=== PATIENT | female | born 1955 | race Caucasian/White ===

== ENCOUNTER 2017-04-30 09:30 | Outpatient (CLI) | payer BC, MEDICARE ==
--- NOTE | 2017-04-30 21:37 | ULT ---
LEFT LOWER EXTREMITY VENOUS ULTRASOUND 04/30/17 Ultrasonography of the left lower extremity was performed using color doppler mode. All deep veins we re freely compressible from groin to ankle. No echogenic clot was seen. There was normal doppler resp onse to augmentation maneuvers. IMPRESSION: No evidence of DVT. POS: HOME
== END 2017-04-30 09:31 | disposition home or self-care (01) ==
LOC: BURULT 09:30
PROVIDERS: ATTEND Nurse Practitioner Family
DX: M25.462 Effusion, left knee (principal); M25.562 Pain in left knee

== ENCOUNTER 2020-10-17 12:45 | Outpatient (CLI) | payer MEDICARE | END 2020-10-17 12:46 | disposition home or self-care (01) | LOC: BURRAD 12:45 | PROVIDERS: ATTEND Clinical Nurse Specialist Medical-Surgical | DX: R05 Cough (principal); J98.4 Other disorders of lung; M25.78 Osteophyte, vertebrae | CPT/HCPCS: 71046 ==

== ENCOUNTER 2024-02-15 12:01 | Emergency (ER) | payer MEDICARE ==
[2024-02-15 12:50] LABS: #Eosinophils 0.1 thou/uL (0.0-0.7); #Lymphocytes 1.6 thou/uL (1.20-3.40); #Monocytes 0.9 thou/uL (0.11-0.59); #Neutrophils 4.6 thou/uL (1.40-6.50); %Basophils 0.3 % (0.0-1.0); %Eosinophils 1.6 % (0.0-10.0); %Monocytes 12.2 % (0.0-10.0); %Neutrophils 63.9 % (42.0-75.0); Hematocrit 38.3 % (36.0-47.0); Hemoglobin 12.4 g/dL (12.0-16.0); Mean Corpuscular HGB CONC 32.2 g/dL (32.0-36.0); Mean Corpuscular Volume 93.2 fl (78.0-98.0); Mean Platelet Volume 8.4 fL (7.4-10.4); Platelet Count 230 10x3/uL (130-400); RBC Distribution Width 11.6 % (11.5-14.5); Red Blood Cell (RBC) Count 4.12 mill/uL (4.20-5.40); White Blood Cell (WBC) Count 7.2 10x3/uL (4.8-10.8)
[2024-02-15 13:05] LABS: ALT (SGPT) 20 U/L (8-55); AST (SGOT) 19 U/L (5-34); Alkaline Phosphatase 92 U/L (40-110); Anion Gap 16 mmol/L (10-20); BUN (Urea Nitrogen) 17 mg/dL (9.8-20.1); Bilirubin, Total 0.3 mg/dL (0.2-1.2); Calc. Creatinine Clearance 0 mL/min (70-130); Calcium 9.8 mg/dL (7.8-10.44); Carbon Dioxide 23 mmol/L (23-31); Chloride 105 mmol/L (98-107); Estimated GFR 92; Globulin 3.1 g/dL (2.4-3.5); Glucose 92 mg/dL (80-115); Potassium 3.7 mmol/L (3.5-5.1); Protein, Total 7.1 g/dL (5.8-8.1); Sodium 140 mmol/L (136-145)
[2024-02-15 13:06] LABS: Troponin I Less than 0.010 ng/mL (< 0.028)
== END 2024-02-15 13:27 | disposition home or self-care (01) ==
LOC: BURERS 12:01
DX: M79.602 Pain in left arm (principal); E03.9 Hypothyroidism, unspecified; I27.20 Pulmonary hypertension, unspecified; J44.9 Chronic obstructive pulmonary disease, unspecified
CPT/HCPCS: 36415; 71045; 80053; 84484; 85025; 93005